=== PATIENT | female | born 1945 | race Caucasian/White ===

== ENCOUNTER 2022-06-18 10:25 | Day surgery (SDC) | payer MEDICARE, MEDICAID, SELFPAY ==
[2022-06-18 10:50] VITALS: BP 150/94; PULSE 67; RESP 16; TEMP 36.3; O2SAT 99
[2022-06-18] MEDS: Tropicam./Phenyleph. (1/2.5%) 5 ML BTL OS ×3 (11:18→11:26)
--- NOTE | 2022-06-18 11:51 | ANES.PREOP_ITS ---
General Info Date of Service Date Performed: 06/18/22 Height: 5 ft 6 in Weight: 72.5 kg Body Mass Index (BMI): 25.7 Surgical Procedure: Operation Date: 06/18/22 14:25 Proposed Procedure Side Surgeon p Cataract Extraction with IOL Implant Left Manuel Adhikari MD Meds Allergies and Home Medications Allergies Allergy/AdvReac Type Severity Reaction Status Date / Time PAVITHRA Inhibitors Allergy Verified 06/18/22 11:09 codeine Allergy Verified 06/18/22 11:09 Home Medication Medication Instructions Recorded carvedilol 3.125 mg tablet 3.125 mg PO BID 06/15/22 levothyroxine 50 mcg tablet 50 mcg PO DAILY 06/15/22 nitroglycerin 0.4 mg sublingual 0.4 mg sublingual Q5 MIN PRN X3 PRN 06/15/22 tablet rosuvastatin 20 mg tablet 20 mg PO DAILY 06/15/22 aspirin 325 mg tablet 325 mg PO DAILY 06/17/22 Current Visit Medications: Current Medications Generic Name Dose Route Start Last Admin Trade Name Freq PRN Reason Stop Dose Admin Acetaminophen 1,000 mg 06/18/22 06:00 Acetaminophen 500 Mg Tab PO Q4H PRN PRN Miscellaneous Medication 0 ml 06/18/22 06:00 Prednisolone 1%, Moxifloxacin 0.5%, Nepafenac 0.1% 5ml Btl OS DIRECTED FRANCISCO JAVIER Miscellaneous Medication 0 ml 06/18/22 06:00 06/18/22 11:26 Tropicam./Phenyleph. (1/2.5%) 5 Ml Btl OS 1 drp DIRECTED FRANCISCO JAVIER Administration Tetracaine HCl 0 ml 06/18/22 06:00 Tetracaine 0.5% 4 Ml Btl OS DIRECTED FRANCISCO JAVIER PFSH Active Problems Active Problems: Problem Status Onset Code Cortical cataract of left eye H26.9 Nuclear sclerotic cataract of left eye H25.12 Medical History Medical History Ear drum perforation age 18 History of dyspnea History of hypertension History of hypothyroidism History of [place] (myocardial infarction) Hx of acute gastritis Hx of coronary atherosclerosis Hx of diarrhea Hx of hyperlipidemia Knee pain Left lower quadrant abdominal pain Nerve root disorder Pain in limb Polyalgia Rosacea Shoulder joint pain Surgical History Surgical History History of ear surgery History of surgery cardiac stent 2003 Tobacco Smoking/Tobacco Use Status: Former Tobacco Use Alcohol Alcohol Intake: former Substance Use Substance use: Never Substance use type: does not use Vital Signs and Lab Results Vital Signs Most Recent Vital Signs in EMR: Most Recent Vital Signs Temp Pulse Resp BP Pulse Ox 36.3 C L 67 16 150/94 H 99 06/18/22 10:50 06/18/22 10:50 06/18/22 10:50 06/18/22 10:50 06/18/22 10:50 Lab Results Blood Type / Crossmatch: No Data to Display Complete Blood Count: No Data to Display Complete Metabolic Panel: No Data to Display Liver Function Panel: No Data to Display Coagulation Panel: 2 No Data to Display Cardiac Panel: No Data to Display Arterial Blood Gas: No Data to Display Venous Blood Gas: No Data to Display Pancreas Panel: No Data to Display Thyroid Panel: No Data to Display Infectious Disease: No Data to Display Blood Cultures: No Data to Display Toxicology Panel: No Data to Display Imaging and Studies Imaging and Studies Study information below may be from another EMR and interpreted by another provider. Please see original notes in EMR for more complete details. [place] [facility] [place] Normal Valves. No ischemia Cardiac Catheterization [place]: [place] [facility] [place] Stent to Mid LAD for STEMI Anesthesia Assessment and Plan Anesthesia History Personal History: No History of Anesthesia Complications and Delayed Emergence Family History: Family History Unknown Exercise Tolerance Exercise Tolerance: Metabolic Equivalents>4 Pertinent Negatives Pertinent Negatives: No Symptoms of GERD Cardiac & Pulmonary Exam Cardiac Exam: Normal S1/S2 Heart Sounds Pulmonary Exam: Clear Bilateral Breath Sounds Implantable Cardiac Device Does patient have a Pacemaker or an ICD?: No Airway Exam Known Difficult Airway: No Mallampati Class: 2 Mouth Opening: Normal (> 3cm) Thyromental Distance: Greater than 3 cm Neck Range of Motion: Full ROM Neck Circumference: Normal Teeth Condition: Generalized Poor Dentition and Edentulous (Upper) ASA Classification ASA Score: ASA 3 Emergency Case?: No NPO Status NPO Status: NPO Clears >2 hours, Solids >8 hours Anesthesia Plan Resuscitation Status: Full Code Anesthesia Technique: MAC Anesthesia Airway Planned: Natural Airway Monitors Used: Standard Monitors
[2022-06-18] MEDS: Lidocaine 2% Jelly 6 ML SYR (12:35)
[2022-06-18 12:37] VITALS: BMI 25.7
[2022-06-18] MEDS: Povidone-Iodine Ophth 30 ML BTL (12:38)
[2022-06-18] MEDS: Tetracaine 0.5% 4 ML BTL OS (12:46)
[2022-06-18] MEDS: Balanced Salt Soln.-PLUS 500 ML BAG (12:47)
[2022-06-18] MEDS: Duovisc Viscoelastic System EACH 1 EACH (12:47)
[2022-06-18] MEDS: Trypan Blue 0.06% 0.5 ML SYR (12:48)
[2022-06-18 13:14] VITALS: BP 152/105; PULSE 67; RESP 16; TEMP 36.2; O2SAT 99
--- NOTE | 2022-06-18 13:15 | RT.EKG_ITS ---
APPROVED REPORT Exam: Resting ECG Reason for Exam: Rule out A-Fib Patient Location: O HR:79 bpm ECG Measurements Heart Rate 79 AXIS [place] [id number] P [id number] QRSd 84 QRS 2 QT 378 T 4 QTc 434 Conclusion Atrial fibrillation...V-rate 58- 79, irreg A-activity
--- NOTE | 2022-06-18 13:17 | W.PM.DSUDISC ---
Date of service: 06/18/22 Time of Service: 13:17 Discharge Plan Disposition Patient Disposition: HOME Condition: Good Discharge Details Attending Provider: Manuel Adhikari Primary Care Provider: Boubacar Trujillo [facility] and New Rx's Prescriptions: No Action carvedilol 3.125 mg Tablet 3.125 mg PO BID Rx Instructions: must administer with a meal/food levothyroxine 50 mcg Tablet 50 mcg PO DAILY nitroglycerin 0.4 mg Tablet, Sublingual 0.4 mg sublingual Q5 MIN PRN X3 PRN rosuvastatin 20 mg Tablet 20 mg PO DAILY aspirin 325 mg Tablet 325 mg PO DAILY Discharge Instructions Stand Alone Forms: Post-op Topical Cataract, Mikala Allan ([facility]U) Discharge Orders Discharge Orders: Discharge Order (Routine); Ordered 06/18/22 Ordered By: Manuel Adhikari DS: Diagnosis Discharge Diagnosis (1) Cortical cataract of left eye: Status: Resolved (2) Nuclear sclerotic cataract of left eye: Status: Resolved
--- NOTE | 2022-06-18 13:18 | ROE_ITS ---
Date of service: 06/18/22 Time of Service: 13:18 Operative Note Operative Note DATE OF PROCEDURE: 06/18/22 PRE-OP DIAGNOSIS: Nuclear/cortical cataract, left eye Poorly dilating pupil, left eye, secondary to pseudoexfoliation Poor red reflex, left eye secondary to cataract POST-OP DIAGNOSIS: same PROCEDURE: Cataract extraction by phacoemulsification with intraocular lens implantation, l eft eye, with pupillary expansion device Insertion of capsular tension ring SURGEON: Manuel Adhikari ANESTHESIA TYPE: Local By Surgeon and MAC Refer to Anesthesia Record ESTIMATED BLOOD LOSS: 0 PATHOLOGY: none sent COMPLICATIONS: None Patient was transported to: same day Patient's condition: stable Implants: [employer] / [employer] Tecnis [id number] MOrcher Type 15 capsular tension ring Indications: Progressive decreased vision, left eye Poorly dilating pupil, left eye. Procedure Description: CATARACT SURGERY OPERATIVE REPORT PREOPERATIVE DIAGNOSIS: 1. Nuclear/cortical cataract, left eye 2. Poorly dilating pupil, left eye, secondary to pseudoexfoliation 3. Poor red reflex, left eye secondary to cataract POSTOPERATIVE DIAGNOSIS: Same OPERATION: 1. Cataract extraction using phacoemulsification with posterior chamber intraocular lens implant, left eye. 2. Pupillary dilation and iris stabilization using Malyugin Ring 3. Capsular staining with VisionBlue 4. Insertion of capsular tension ring IOL; IOL Clinical Quality Rn/Model: [employer] / VINNIE Tecnis ZCB00 IOL Power: + 24.0 diopters IOL Serial Number: [id number] Optic Diameter: 6.0 mm Haptic/Overall Diameter: 13.00 mm PHACO INFO: Darryl 3Sourcingurion Vision System with OZil and Active Fluidics Cumulative Dispersed Energy (CDE): 3.94 seconds SURGEON: Manuel Adhikari MD, RAMBO ANESTHESIA: Monitored Anesthesia Care (MAC), with local sub-tenon's anesthetic infiltration COMPLICATIONS: None SPECIMENS: None INDICATIONS FOR PROCEDURE: The patient is a 77-year-old lady with history of diminished visual acuity in her left eye secondary to significant nuclear/cortical cataract. 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 Cataract surgery was done in attempt to improve and maximize her vision. The option of cataract surgery was offered to the patient and she wished to proceed PROCEDURE: The correct surgical eye was identified and marked as the left eye and the pupil was dilated in the preoperative area using mydriatics, cycloplegics, and NSAIDS (except in aspirin allergic patients). The dilated pupil size was 3.0 mm. The patient elected to proceed without oral sedation. The patient was brought to the operating room where cardiopulmonary monitoring was instituted and surgical time-out was performed, confirming the correct operative eye and IOL power. Topical anesthesia was administered and ophthalmic povidone-iodine 5% was instilled into the conjunctival fornices. Lidocaine gel was applied to the cornea and the fernando-ocular area was prepped with Betadine 10% solution and draped in the usual sterile fashion for intraocular surgery, including an aperture drape. A Tegaderm transparent film dressing was cut in half and used to cover the lashes and lid margins. Care was taken to sequester the lashes and lid margins under the Tegaderm dressing. A lid speculum was placed between the lids of the operative eye and the Dolores-Allen operating microscope was maneuvered into position. Tin scissors were then used to make a conjunctival buttonhole approximately 6mm posterior to the limbus in the inferonasal quadrant. Blunt dissection was carried out to expose bare sclera, and a blunt-tipped sub-tenon?s anesthesia cannula was introduced and passed posteriorly along the globe where non- preserved plain lidocaine was injected into posterior sub-Tenon?s space. A sideport knife was used to make a paracentesis port superiorly/superiortemporally. Intraocular phenylephrine/lidocaine was injected into the anterior chamber. The anterior chamber was then filled with viscoelastic, Provisc was used. A keratome knife was used to create a half- thickness groove at the limbus and then to construct a three-plane near-clear corneal tunnel extending 2.0mm into clear cornea at the temporal position. A 6.25 mm Malyugin Ring was then inserted into the pupillary space and engaged with the Kuglen hook. The viscoelastic was then removed using the irrigation/aspiration handpiece, and VisionBlue was injected into the anterior chamber and allowed to sit for 8 to 10 seconds before it was irrigated out with balanced salt solution. A flap was raised on the anterior capsule and capsulorhexis forceps were used to complete a continuous curvilinear capsulorhexis of 5.5 mm. Significant capsular wrinkling and zonular laxity were noted. Balanced salt solution was then used to perform cortical cleaving hydrodissection and nuclear hydrodelineation until the lens could be freely rotated within the capsular bag. The lens nucleus was then disassembled and removed within the capsular bag and iris plane using phacoemulsification. Residual cortical material was removed using the 45-degree angled silicone I/A tip with 0.3mm port. The posterior capsule was carefully polished to remove as much residual lens epithelial cells as safely possible. The capsular bag was then inflated and the anterior chamber deepened with viscoelastic. A Morcher Type 15 capsular tensioning was then inserted into the capsular bag without difficulty. The lens implant described above was inserted into the capsular bag using the [employer] Injector. A Kuglen hook was used to dial the IOL into position. The Malyugin Ring was removed in the reverse order of its insertion. Residual viscoelastic was then removed first from posterior to the IOL, then from the anterior chamber using the I/A handpiece. The lens implant was noted to center nicely within the capsular bag. The incisions were stromally hydrated, and the anterior chamber was reformed using BSS. Then 0.5cc of moxifloxacin 1.0mg/ml were injected into the capsular bag and anterior chamber. The incisions were checked with a Weck spear and found to be secure. Several drops o f ophthalmic povidone-iodine 5% were then applied to the eye followed by two drops of Imprimis combination prednisolone/moxifloxacin/nepafenac solution. The drapes were removed and a clear plastic protective eye shield was placed over the eye. The patient was then returned to Same Day Surgery in stable condition.
--- NOTE | 2022-06-18 14:42 | W.ANESPOSTOP ---
Postoperative Evaluation Date, Time and Location Date Performed: 06/18/22 Time Performed: 14:43 Patient Location: Day Surgery Unit Vital Signs Most Recent Imported Vital Signs: Most Recent Vital Signs Temp Pulse Resp BP Pulse Ox 36.2 C L 67 16 152/105 H 99 06/18/22 13:14 06/18/22 13:14 06/18/22 13:14 06/18/22 13:14 06/18/22 13:14 Pain Score Most Recent Pain Score: Most Recent Pain Score Pain Level 0 06/18/22 13:14 Assessment Mental Status: Awake (Alert & Oriented to Patient Baseline) Airway and Respiratory Function: Patent airway with normal (patient baseline) respiratory exam Cardiovascular Function: Hemodynamically Stable Hydration Status: Adequately Hydrated Nausea & Vomiting: No Nausea or Vomiting Pain: Pt. Denies Any Pain Peripheral Nerve Block: Patient did not receive a nerve block Teaching Patient Teaching: Advised to seek followup for the following concerns (See explanation) (Atrial Fibrillation) Concerns: New Onset Atrial Fibrillation Postoperative Comments:: Pt. found to be in a-fib, initially thought to be SR during procedure. She states she has no history of a-fib. Pt. educated on a-fib, and advised to call 911 is she develops chest pain, shortness of breath, s/s of syncope or stroke. Otherwise she is rate controlled around 70 with no acute symptoms, takes ASA 325mg and coreg. She will followup with PCP for appt. on at [address] Sepulveda for workup and additional therapy if needed..
== END 2022-06-18 14:35 | disposition home or self-care (01) ==
LOC: SUR 10:28
PROVIDERS: PCP Family Medicine; Visit Provider Ophthalmology
PROC: (CPT 66982; principal; 2022-06-18 14:15)
DX: H25.12 Age-related nuclear cataract, left eye (principal); H57.03 Miosis; H26.8 Other specified cataract
CPT/HCPCS: 66982; V2632; 93005; 93010

== ENCOUNTER 2022-07-02 08:52 | Day surgery (SDC) | payer MEDICARE, MEDICAID, SELFPAY ==
[2022-07-02] MEDS: Tropicam./Phenyleph. (1/2.5%) 5 ML BTL OD ×3 (10:10→10:23)
[2022-07-02 10:12] VITALS: BP 160/100; PULSE 78; RESP 18; TEMP 36.3; O2SAT 99
--- NOTE | 2022-07-02 10:16 | ANES.PREOP_ITS ---
General Info Date of Service Date Performed: 07/02/22 Height: 5 ft 6 in Weight: 72.9 kg Body Mass Index (BMI): 25.9 Surgical Procedure: Operation Date: 07/02/22 12:10 Proposed Procedure Side Surgeon p Cataract Extraction with IOL Implant Right Manuel Adhikari MD Meds Allergies and Home Medications Allergies Allergy/AdvReac Type Severity Reaction Status Date / Time PAVITHRA Inhibitors Allergy Verified 07/02/22 10:07 codeine Allergy Verified 07/02/22 10:07 Home Medication Medication Instructions Recorded carvedilol 3.125 mg tablet 3.125 mg PO BID 06/15/22 levothyroxine 50 mcg tablet 50 mcg PO DAILY 06/15/22 nitroglycerin 0.4 mg sublingual 0.4 mg sublingual Q5 MIN PRN X3 PRN 06/15/22 tablet rosuvastatin 20 mg tablet 20 mg PO HS 06/15/22 aspirin 325 mg tablet 325 mg PO DAILY 06/17/22 Current Visit Medications: Current Medications Generic Name Dose Route Start Last Admin Trade Name Freq PRN Reason Stop Dose Admin Acetaminophen 1,000 mg 07/02/22 06:00 Acetaminophen 500 Mg Tab PO Q4H PRN PRN Miscellaneous Medication 0 ml 07/02/22 06:00 Prednisolone 1%, Moxifloxacin 0.5%, Nepafenac 0.1% 5ml Btl OD DIRECTED FRANCISCO JAVIER Miscellaneous Medication 0 ml 07/02/22 06:00 07/02/22 10:14 Tropicam./Phenyleph. (1/2.5%) 5 Ml Btl OD 1 drp DIRECTED FRANCISCO JAVIER Administration Tetracaine HCl 0 ml 07/02/22 06:00 Tetracaine 0.5% 4 Ml Btl OD DIRECTED FRANCISCO JAVIER PFSH Active Problems Active Problems: Problem Status Onset Code Cortical cataract of right eye H26.9 Nuclear sclerotic cataract of right eye H25.11 Nuclear sclerotic cataract of left eye H25.12 Cortical cataract of left eye H26.9 Medical History Medical History Ear drum perforation age 18 History of dyspnea History of hypertension History of hypothyroidism History of [place] (myocardial infarction) Hx of acute gastritis Hx of coronary atherosclerosis Hx of diarrhea Hx of hyperlipidemia Knee pain Left lower quadrant abdominal pain Nerve root disorder Pain in limb Polyalgia Rosacea Shoulder joint pain Surgical History Surgical History H/O cataract extraction History of ear surgery History of surgery cardiac stent 2003 Tobacco Smoking/Tobacco Use Status: Former Tobacco Use Alcohol Alcohol Intake: former Substance Use Substance use: Never Substance use type: does not use Vital Signs and Lab Results Vital Signs Most Recent Vital Signs in EMR: Most Recent Vital Signs Temp Pulse Resp BP Pulse Ox 36.3 C L 78 18 160/100 H 99 07/02/22 10:12 07/02/22 10:12 07/02/22 10:12 07/02/22 10:12 07/02/22 10:12 Lab Results Blood Type / Crossmatch: No Data to Display Complete Blood Count: No Data to Display Complete Metabolic Panel: No Data to Display Liver Function Panel: No Data to Display Coagulation Panel: No Data to Display Cardiac Panel: No Data to Display Arterial Blood Gas: No Data to Display Venous Blood Gas: No Data to Display Pancreas Panel: No Data to Display Thyroid Panel: No Data to Display Infectious Disease: No Data to Display Blood Cultures: No Data to Display Toxicology Panel: No Data to Display Imaging and Studies Imaging and Studies Study information below may be from another EMR and interpreted by another provider. Please see original notes in EMR for more complete details. EKG Summary: 06/18/22 Conclusion Atrial fibrillation...V-rate 58- 79, irreg A-activity Stress Test Summary: 05[place]/14[place] [facility] [place]%, Normal Valves. No ischemia Cardiac Catheterization Summary: [place]28/2003[place] [facility] [place] Stent to Mid LAD for STEMI Anesthesia Assessment and Plan Anesthesia History Personal History: No History of Anesthesia Complications and Delayed Emergence Family History: Family History Unknown Exercise Tolerance Exercise Tolerance: Metabolic Equivalents>4 Pertinent Negatives Pertinent Negatives: No Symptoms of GERD Cardiac & Pulmonary Exam Cardiac Exam: Normal S1/S2 Heart Sounds Pulmonary Exam: Clear Bilateral Breath Sounds Implantable Cardiac Device Does patient have a Pacemaker or an ICD?: No Airway Exam Known Difficult Airway: No Mallampati Class: 2 Mouth Opening: Normal (> 3cm) Thyromental Distance: Greater than 3 cm Neck Range of Motion: Full ROM Neck Circumference: Normal Teeth Condition: Generalized Poor Dentition and Edentulous (Upper) ASA Classification ASA Score: ASA 3 Emergency Case?: No NPO Status NPO Status: NPO Clears >2 hours, Solids >8 hours Anesthesia Plan Resuscitation Status: Full Code Anesthesia Technique: MAC Anesthesia Airway Planned: Natural Airway Monitors Used: Standard Monitors Preoperative Comments:: Had no sedation last cat. Wants MKO today
[2022-07-02 10:19] VITALS: BMI 25.9
[2022-07-02] MEDS: Tetracaine 0.5% 4 ML BTL OD (11:11)
[2022-07-02] MEDS: Lidocaine 2% Jelly 6 ML SYR (11:12)
[2022-07-02] MEDS: Povidone-Iodine Ophth 30 ML BTL (11:12)
[2022-07-02] MEDS: Balanced Salt Soln.-PLUS 500 ML BAG (11:18)
[2022-07-02] MEDS: Duovisc Viscoelastic System EACH 1 EACH (11:18)
[2022-07-02] MEDS: Trypan Blue 0.06% 0.5 ML SYR (11:19)
[2022-07-02 11:47] VITALS: BP 124/90; PULSE 78; RESP 16; TEMP 36.2; O2SAT 96
--- NOTE | 2022-07-02 11:51 | PDOC.DSDIS_ITS ---
Date of service: 07/02/22 Time of Service: 11:51 Discharge Plan Disposition Patient Disposition: HOME Condition: Good Discharge Details Attending Provider: Manuel Adhikari Primary Care Provider: Boubacar Trujillo [facility] and New Rx's Prescriptions: No Action carvedilol 3.125 mg Tablet 3.125 mg PO BID Rx Instructions: must administer with a meal/food levothyroxine 50 mcg Tablet 50 mcg PO DAILY nitroglycerin 0.4 mg Tablet, Sublingual 0.4 mg sublingual Q5 MIN PRN X3 PRN rosuvastatin 20 mg Tablet 20 mg PO HS aspirin 325 mg Tablet 325 mg PO DAILY Discharge Instructions Stand Alone Forms: Post-op Topical Cataract, Mikala Allan ([facility]) DS: Diagnosis Discharge Diagnosis (1) Cortical cataract of right eye: Status: Resolved (2) Nuclear sclerotic cataract of right eye: Status: Resolved
--- NOTE | 2022-07-02 11:52 | ROE_ITS ---
Date of service: 07/02/22 Time of Service: 11:52 Operative Note Operative Note DATE OF PROCEDURE: 07/02/22 PRE-OP DIAGNOSIS: Nuclear/cortical cataract, right eye Poorly dilating pupil, right eye Poor red reflex, right eye secondary to cataract POST-OP DIAGNOSIS: same PROCEDURE: Cataract extraction using phacoemulsification with intraocular lens implant, right eye, with pupillary dilation using Malyugin Ring and capsular staining using Vision Blue SURGEON: Manuel Adhikari Refer to Anesthesia Record ESTIMATED BLOOD LOSS: 0 PATHOLOGY: none sent COMPLICATIONS: None Patient was transported to: same day Patient's condition: stable Implants: [employer] / [employer] Tecnis [id number] Indications: Progressive decreased vision due to cataract, right eye Procedure Description: CATARACT SURGERY OPERATIVE REPORT PREOPERATIVE DIAGNOSIS: 1. Nuclear/cortical cataract, right eye 2. Poorly dilating pupil, right eye 3. Poor red reflex, right eye POSTOPERATIVE DIAGNOSIS: Same OPERATION: 1. Cataract extraction using phacoemulsification with posterior chamber intraocular lens implant, right eye. 2. Pupillary dilation and iris stabilization using Malyugin Ring 3. Capsular staining with VIsion Blue IOL: IOL Usability Engineer/Model: [employer] / VINNIE Tecnis [id number] IOL Power: + 23.5 diopters IOL Serial Number: [id number] Optic Diameter: 6.0mm Haptic/Overall Diameter: 13.0mm PHACO INFO: Darryl [employer] Vision System with OZil and Active [employer]uidics Cumulative Dispersed Energy (CDE): 8.32 seconds SURGEON: Manuel Adhikari MD, RAMBO ANESTHESIA: Monitored Anesthesia Care (MAC), with local sub-tenon's anesthetic infiltration COMPLICATIONS: None SPECIMENS: None INDICATIONS FOR PROCEDURE: The patient is a 77-year-old lady with history of diminished visual acuity in both eyes secondary to the development of bilateral nuclear/cortical cataract. She has very poorly dilating pupils. She has already undergone cataract surgery in the left eye, utilizing a pupillary expansion device and also a capsular tension ring. She is doing well postoperatively in the left eye and now presents for cataract surgery in the right eye. PROCEDURE: The correct surgical eye was identified and marked as the right eye and the pupil was dilated in the preoperative area using mydriatics and cycloplegics. The dilated pupil size was 3.0 mm. Oral sedation was administered in the form of an Imprimis MKO Melt (midazolam 3mg/ketamine 25mg/ondansetron 2mg). The patient was brought to the operating room where cardiopulmonary monitoring was instituted and surgical time-out was performed, confirming the correct operative eye and IOL power. Topical anesthesia was administered and ophthalmic povidone-iodine 5% was instilled into the conjunctival fornices. Lidocaine gel was applied to the cornea and the fernando-ocular area was prepped with Betadine 10% solution and draped in the usual sterile fashion for intraocular surgery, including an aperture drape. A Tegaderm transparent film dressing was cut in half and used to cover the lashes and lid margins. Care was taken to sequester the lashes and lid margins under the Tegaderm dressing. A lid speculum was placed between the lids of the operative eye and the Dolores-Allen operating microscope was maneuvered into position. Tin scissors were then used to make a conjunctival buttonhole approximately 6mm posterior to the limbus in the inferonasal quadrant. Blunt dissection was carried out to expose bare sclera, and a blunt-tipped sub-tenon?s anesthesia cannula was introduced and passed posteriorly along the globe where non- preserved plain lidocaine was injected into posterior sub-Tenon?s space. A sideport knife was used to make a paracentesis port inferiortemporally. Intraocular phenylephrine/lidocaine was injected into the anterior chamber. Th e anterior chamber was then filled with viscoelastic, Provisc was used. A 2.4mm keratome knife was used to construct a 2-plane near-clear corneal tunnel extending 2.0mm into clear cornea superiortemporally. A 6.25 mm Malyugin Ring was then inserted into the pupillary space and engaged with the Kuglen hook. The Provisc was then removed using the irrigation/aspiration handpiece, and VisionBlue was then injected into the anterior chamber and allowed to sit for 8 to 10 seconds before being irrigated out with balanced salt solution. Viscoat was then used to fill the anterior chamber. A flap was raised on the anterior capsule and capsulorhexis forceps were used to complete a continuous curvilinear capsulorhexis of 5.0 mm. Balanced salt solution was then used to perform cortical cleaving h ydrodissection and nuclear hydrodelineation until the lens could be freely rotated within the capsular bag. The lens nucleus was then disassembled and removed within the capsular bag and iris plane using phacoemulsification. Residual cortical material was removed using the 45-degree angled silicone I/A tip with 0.3mm port. The posterior capsule was carefully polished to remove as much residual lens epithelial cells as safely possible. The capsular bag was then inflated and the anterior chamber deepened with viscoelastic. The lens implant described above was inserted into the capsular bag using the VINNIE [place] Injector. A Kuglen hook was used to dial the IOL into position. The Malyugin Ring was removed in the reverse order of its insertion. Residual viscoelastic was then removed first from posterior to the IOL, then from the anterior chamber using the I/A handpiece. The lens implant was noted to center nicely within the capsular bag. The incisions were stromally hydrated, and the anterior chamber was reformed using BSS. Then 0.5cc of moxifloxacin 1.0mg/ml were injected into the capsular bag and anterior chamber. The incisions were checked with a Weck spear and found to be secure. Several drops of ophthalmic povidone-iodine 5% were then applied to the eye followed by two drops of Imprimis combination prednisoone/moxifloxacin/nepafenac solution. The drapes were removed and a clear plastic protective eye shield was placed over the eye. The patient was then returned to Same Day Surgery in stable condition.
[2022-07-02 12:11] VITALS: BP 139/76; PULSE 69; RESP 16; TEMP 36.1; O2SAT 97
--- NOTE | 2022-07-02 15:05 | W.ANESPOSTOP ---
Postoperative Evaluation Date, Time and Location Date Performed: 07/02/22 Time Performed: 11:50 Patient Location: Day Surgery Unit Vital Signs Most Recent Imported Vital Signs: Most Recent Vital Signs Temp Pulse Resp BP Pulse Ox 36.1 C L 69 16 139/76 97 07/02/22 12:11 07/02/22 12:11 07/02/22 12:11 07/02/22 12:11 07/02/22 12:11 Pain Score Most Recent Pain Score: Most Recent Pain Score Pain Level 0 07/02/22 12:11 Assessment Mental Status: Awake (Alert & Oriented to Patient Baseline) Airway and Respiratory Function: Patent airway with normal (patient baseline) respiratory exam Cardiovascular Function: Hemodynamically Stable Hydration Status: Adequately Hydrated Nausea & Vomiting: No Nausea or Vomiting Pain: Pt. Denies Any Pain Peripheral Nerve Block: Patient did not receive a nerve block
== END 2022-07-02 12:30 | disposition home or self-care (01) ==
LOC: SUR 08:52
PROVIDERS: PCP Family Medicine; Visit Provider Ophthalmology
PROC: (CPT 66982; principal; 2022-07-02 12:00)
DX: H25.11 Age-related nuclear cataract, right eye (principal); H57.03 Miosis; H26.8 Other specified cataract
CPT/HCPCS: 66982; V2632